=== PATIENT | female | born 1980 | race American Indian/Alaskan Native ===

== ENCOUNTER 2017-11-14 14:58 | Emergency (ER) | payer MEDICAID, OTHER ==
[2017-11-14 15:08] VITALS: BP 109/88
--- NOTE | 2017-11-14 16:12 | EDM.PDOC ---
ED HPI GENERAL MEDICAL PROBLEM - General Chief Complaint: Lower Extremity Injury/Pain Stated Complaint: BROKEN LEFT FOOT, RT SPRAINED ANKLE [phone] Time Seen by Provider: 11/14/17 15:10 - History of Present Illness INITIAL COMMENTS - FREE TEXT/NARRATIVE: Before seeing the patient, a call was placed to the [facility] regarding the patient's visit from yesterday. The patient was seen by Dr. Le yesterday, had x-rays, was placed in a brace for her right ankle sprain, placed in a walking boot for her left foot fractures, given a set of crutches and advised to take Tylenol as well as ibuprofen for symptom relief. The patient was under the understanding that she could get an appointment with another provider for additional pain medication. The patient was advised that she should call Dr. Le's office for further pain management if the medications he prescribed were not working. The patient reported that she did not want to be seen here if that is the case. Bilateral Feet Pain Score (Numeric/FACES): 8 - Related Data Allergies Allergy/AdvReac Type Severity Reaction Status Date / Time lactose Allergy Cannot Verified 11/14/17 15:08 Remember Home Meds: Home Meds Ranitidine [Zantac] 150 mg PO DAILY 05/27/15 [History] Celecoxib [CeleBREX] 100 mg PO DAILY 11/14/17 [History] Sertraline HCl 25 mg PO DAILY 11/14/17 [History] Past Medical History HEENT History: Reports: Impaired Vision Gastrointestinal History: Reports: GERD Genitourinary History: Reports: None MANAGER PUBLIC History: Reports: Other MANAGER PUBLIC History: 9th Musculoskeletal History: Reports: Fracture Psychiatric History: Reports: Anxiety, Depression Endocrine/Metabolic History: Reports: None - Infectious Disease History Infectious Disease History: Reports: Other (See Below) 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 - Past Surgical History Head Surgeries/Procedures: Reports: None Female Surgical History: Reports: Tubal Ligation Endocrine Surgical History: Reports: None Musculoskeletal Surgical History: Reports: None Social & Family History - Family History Family Medical History: Noncontributory HEENT: Reports: None - Tobacco Use Smoking Status *Q: Current Every Day Smoker Years of Tobacco use: 1 Packs/Tins Daily: 0.3 Second Hand Smoke Exposure: Yes - Caffeine Use Caffeine Use: Reports: Coffee, Soda - Recreational Drug Use Recreational Drug Use: No - Sexual History Sexual History: Reports: Sexually Active - Living Situation & Occupation Living situation: Reports: with Family, Review of Systems - Review of Systems Review Of Systems: Unable To Obtain ED EXAM, GENERAL - Physical Exam Exam: Not Obtained Course - Vital Signs Last Recorded V/S: Last Vital Signs Temp 35.9 C 11/14/17 15:03 Pulse 71 11/14/17 15:03 Resp 18 11/14/17 15:03 BP 109/88 11/14/17 15:03 Pulse Ox 99 11/14/17 15:03 Departure - Departure Time of Disposition: 16:06 Disposition: Left Without Being Seen 07 Condition: Undetermined Clinical Impression: Patient left without being seen - Discharge Information Referrals: PCP,None [Ordering Only Provider] - Forms: ED Department Discharge
== END 2017-11-14 16:06 | disposition left against medical advice (07) ==
LOC: DL.ED 14:58
DX: Z53.21 Procedure and treatment not carried out due to patient leaving prior to being seen by health care provider (principal)

== ENCOUNTER 2019-03-07 16:16 | Emergency (ER) | payer MEDICAID ==
[2019-03-07 16:48] VITALS: BP 127/73; PULSE 90
[2019-03-07] MEDS: Ondansetron 4 MG Tab.DIS PO ONE (17:57)
--- NOTE | 2019-03-07 18:03 | EDM.PDOC ---
Scribed by Maryanne Augustine 03/07/19 1804 for Krish Lawson PA ED HPI GENERAL MEDICAL PROBLEM - General Chief Complaint: Gastrointestinal Problem Stated Complaint: FEVER,THROWING UP, DHIRIA Time Seen by Provider: 03/07/19 17:07 Source of Information: Reports: Patient, RN, RN Notes Reviewed History Limitations: Reports: No Limitations - History of Present Illness INITIAL COMMENTS - FREE TEXT/NARRATIVE: Patient is a 39-year-old female who presents to ER with stomachache this morning and feeling cold. Her daughter is in the ER with similar symptoms. She has vomited 3 times today. She ate eggs for breakfast and mashed potatoes 2 hours ago. She took Tums 2 hours ago. Patient did not get her flu shot this year. Onset: Today Duration: Constant Location: Reports: Abdomen Quality: Reports: Ache Severity: Mild Improves with: Reports: None Worsens with: Reports: None Associated Symptoms: Reports: No Other Symptoms - Related Data Allergies Allergy/AdvReac Type Severity Reaction Status Date / Time lactose Allergy Cannot Verified 03/07/19 16:44 Remember Home Meds: Home Meds Celecoxib [CeleBREX] 200 mg PO DAILY 11/14/17 [History] Omeprazole 20 mg PO DAILY 03/07/19 [History] buPROPion HCl [Bupropion Xl] 150 mg PO 03/07/19 [History] Past Medical History HEENT History: Reports: Impaired Vision Cardiovascular History: Reports: None Respiratory History: Reports: None Gastrointestinal History: Reports: GERD Genitourinary History: Reports: None 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: Reports: Other LOSS CONTROL CONSULTANT History: 9th Musculoskeletal History: Reports: Fracture Neurological History: Reports: None Psychiatric History: Reports: Anxiety, Depression Endocrine/Metabolic History: Reports: Obesity/BMI 30+ Hematologic History: Reports: None Immunologic History: Reports: None Oncologic (Cancer) History: Reports: None Dermatologic History: Reports: None - Infectious Disease History Infectious Disease History: Reports: Other (See Below) 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 - Past Surgical History Head Surgeries/Procedures: Reports: None Female Surgical History: Reports: Tubal Ligation Endocrine Surgical History: Reports: None Musculoskeletal Surgical History: Reports: None Social & Family History - Family History Family Medical History: Noncontributory HEENT: Reports: None - Tobacco Use Smoking Status *Q: Never Smoker Second Hand Smoke Exposure: No - Caffeine Use Caffeine Use: Reports: Energy Drinks, Soda - Recreational Drug Use Recreational Drug Use: No - Sexual History Sexual History: Reports: Sexually Active - Living Situation & Occupation Living situation: Reports: with Family, ED ROS GENERAL - Review of Systems Review Of Systems: Comprehensive ROS is negative, except as noted in HPI. ED EXAM, GI/ABD - Physical Exam Exam: See Below Exam Limited By: No Limitations General Appearance: Alert, WD/WN, No Apparent Distress Eyes: Bilateral: Normal Appearance Ears: Normal External Exam, Normal Canal, Hearing Grossly Normal, Normal TMs Nose: Normal Inspection, Normal Mucosa, No Blood Throat/Mouth: Normal Inspection, Normal Lips, Normal Teeth, Normal Gums, Normal Oropharynx, Normal Voice, No Airway Compromise Head: Atraumatic, Normocephalic Neck: Normal Inspection, Supple, Non-Tender, Full Range of Motion Respiratory/Chest: No Respiratory Distress, Lungs Clear, Normal Breath Sounds, No Accessory Muscle Use, Chest Non-Tender Cardiovascular: Normal Peripheral Pulses, Regular Rate, Rhythm, No Edema, No Gallop, No JVD, No Murmur, No Rub GI/Abdominal Exam: Normal Bowel Sounds, Soft, Non-Tender, No Organomegaly, No Distention, No Abnormal Bruit, No Mass, Pelvis Stable (Female) Exam: Deferred Rectal (Female) Exam: Deferred Back Exam: Normal Inspection, Full Range of Motion, NT Extremities: Normal Inspection, Normal Range of Motion, Non-Tender, Normal Capillary Refill, No Pedal Edema Neurological: Alert, Oriented, CN II-XII Intact, Normal Cognition, Normal Gait, Normal Reflexes, No Motor/Sensory Deficits Psychiatric: Normal Affect, Normal Mood Skin Exam: Warm Lymphatic: No Adenopathy Course - Vital Signs Last Recorded V/S: Last Vital Signs Temp 36.6 C 03/07/19 16:46 Pulse 90 03/07/19 16:46 Resp 16 03/07/19 16:46 BP 127/73 03/07/19 16:46 Pulse Ox 99 03/07/19 16:46 - Orders/Labs/Meds Meds: Medications Discontinued Medications Generic Name Dose Route Start Last Admin Trade Name Freq PRN Reason Stop Dose Admin Ondansetron HCl 4 mg 03/07/19 17:53 03/07/19 17:57 Zofran Odt PO 03/07/19 17:54 4 mg ONETIME ONE Administration Departure - Departure Time of Disposition: 17:59 Disposition: Home, Self-Care 01 Condition: Fair Clinical Impression: Gastroenteritis - Discharge Information *PRESCRIPTION DRUG MONITORING PROGRAM REVIEWED*: Not Applicable *COPY OF PRESCRIPTION DRUG MONITORING REPORT IN PATIENT REX: Not Applicable Instructions: Viral Gastroenteritis, Adult, [id number] Forms: ED Department Discharge Care Plan Goals: The patient was advised of the examination and lab results during the visit. The patient was given an oral dose of Zofran while in the ED. The patient was discharged with a script for Zofran (4 mg) #20 to take 1 by mouth every 6 hours as needed for nausea. The patient was encouraged to stick to a BRAT diet ( bananas, rice, applesauce and toast) with small frequent sips of fluid. If the patient has any additional symptoms or concerns, the patient should either return to the emergency department or follow-up with her primary care facility. Sepsis Event Note - Evaluation Sepsis Screening Result: No Definite Risk - Focused Exam Vital Signs: Vital Signs Temp Pulse Resp BP Pulse Ox 03/07/19 16:46 36.6 C 90 16 127/73 99 Date Exam was Performed: 03/07/19 Time Exam was Performed: 17:58 I have read and agree with the documentation that has been completed regarding this visit. By signing this record, I attest that the documentation was completed in my physical presence and is an accurate record of the encounter.
== END 2019-03-07 18:09 | disposition home or self-care (01) ==
LOC: DL.ED 16:16
DX: K52.9 Noninfective gastroenteritis and colitis, unspecified (principal)
CPT/HCPCS: 87804; 99284; A9270

== ENCOUNTER 2019-09-04 20:50 | Emergency (ER) | payer MEDICAID ==
[2019-09-04] MEDS ORDERED: Succinylcholine 200 MG/10 ML MDV IV ONE (20:51)
[2019-09-04] MEDS ORDERED: Propofol 200 MG/20 ML SDV IV ONE (20:51)
[2019-09-04] MEDS ORDERED: Norepinephrine 4 MG/4 ML SDV ONE (21:26)
--- NOTE | 2019-09-04 21:37 | CR ---
PROCEDURE INFORMATION: Exam: XR Chest, 1 View Exam date and time: 09/04/2019 9:26 PM Age: 39 years old Clinical indication: Other: Tube placement; Additional info: Post intubation TECHNIQUE: Imaging protocol: XR of the chest Views: 1 view. COMPARISON: No relevant prior studies available. FINDINGS: Tubes, catheters and devices: Endotracheal tube in the right mainstem bronchus. Withdrawal of the catheter by 3.5 cm would is sure better positioning. Multiple leads and lines external to the patient overlie the chest. Nasogastric tube passes into the stomach and off the inferior margin of the image. Lungs: No suspicious pulmonary nodules or areas of lung consolidation. Pleural space: Costophrenic angles are sharp. No pneumothorax. Heart/Mediastinum: Unremarkable. No cardiomegaly. Bones/joints: Age appropriate. IMPRESSION: 1. Endotracheal tube in the right mainstem bronchus. Withdrawal of the catheter by 3.5 cm would is sure better positioning. 2. Nasogastric tube passes into the stomach and off the inferior margin of the image.
[2019-09-04 21:43] LABS: CHLORIDE,CL 103 mmol/L (98-107); SODIUM,NA 140 mmol/L (136-145)
[2019-09-04 21:44] LABS: ACETAMINOPHEN 0 ug/mL (10-30 (Therapeutic))
[2019-09-04] MEDS ORDERED: Norepinephrine 4 MG in Dextrose 5% in Water 246 ML IV SCH ×2 (21:45)
[2019-09-04] MEDS ORDERED: Potassium Chloride 10 MEQ in Premix Bag 1 BAG IV ONE (21:59)
--- NOTE | 2019-09-05 04:39 | EDM.PDOC ---
ED HPI GENERAL MEDICAL PROBLEM - General Chief Complaint: Drug or Alcohol Abuse Stated Complaint: AMBULANCE Time Seen by Provider: 09/04/19 21:15 Source of Information: Reports: EMS, RN History Limitations: Reports: Altered Mental Status - History of Present Illness INITIAL COMMENTS - FREE TEXT/NARRATIVE: ED via [facility] with report of drinking today, told took handful of s eroquel. EMS called by family. Altered mentation, Thrashing in ambulance yelling, 5 mg versed given enroute, Unresponsive on arrival. O2 sats in 70's Nasal cannula, NRB up to 80's. incontinent urine and stool .No signs of trauma, No obvious signs IVDU. pupils pinpoint. Anesthesia here to intubate, - Related Data Allergies Allergy/AdvReac Type Severity Reaction Status Date / Time lactose Allergy Cannot Verified 03/07/19 16:44 Remember Home Meds: Home Meds Celecoxib [CeleBREX] 200 mg PO DAILY 11/14/17 [History] Omeprazole 20 mg PO DAILY 03/07/19 [History] buPROPion HCL [Bupropion Xl] 150 mg PO 03/07/19 [History] Past Medical History HEENT History: Reports: Impaired Vision Cardiovascular History: Reports: None Respiratory History: Reports: None Gastrointestinal History: Reports: GERD Genitourinary History: Reports: None X RAY TECHNOLOGIST History: Reports: Other X RAY TECHNOLOGIST History: 9th Musculoskeletal History: Reports: Fracture Neurological History: Reports: None Psychiatric History: Reports: Anxiety, Depression Endocrine/Metabolic History: Reports: Obesity/BMI 30+ Hematologic History: Reports: None Immunologic History: Reports: None Oncologic (Cancer) History: Reports: None Dermatologic History: Reports: None - Infectious Disease History Infectious Disease History: Reports: Other (See Below) 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 - Past Surgical History Head Surgeries/Procedures: Reports: None Female Surgical History: Reports: Tubal Ligation Endocrine Surgical History: Reports: None Musculoskeletal Surgical History: Reports: None Social & Family History - Family History Family Medical History: Noncontributory HEENT: Reports: None - Caffeine Use Caffeine Use: Reports: Energy Drinks, Soda - Sexual History Sexual History: Reports: Sexually Active - Living Situation & Occupation Living situation: Reports: with Family, ED ROS GENERAL - Review of Systems Review Of Systems: Unable To Obtain Reason Not Obtained: unresponsive - Physical Exam Exam: See Below Exam Limited By: No Limitations General Appearance: Obtunded, Moderate Distress (snoring respirations), Obese Eye Exam: Bilateral Eye: PERRL (pinpoint) Ears: Normal External Exam, Normal TMs Nose: Normal Inspection Throat/Mouth: Normal Inspection Head Exam: Atraumatic, Normocephalic Neck: Normal Inspection Respiratory/Chest: Lungs Clear. No: Normal Breath Sounds Cardiovascular: Regular Rate, Rhythm, Tachycardia GI/Abdominal: Normal Bowel Sounds, Soft. No: Distended (Female) Exam: Other (incontinent urine) Neuro Exam (Abbreviated): Unresponsive Extremities: No: Joint Swelling, Pallor, Redness Skin Exam: Warm, Dry, Intact, Normal Color. No: Wound/Incision Course - Orders/Labs/Meds Orders: Active Orders 24 hr Category Date Time Status Blood Glucose Check, Bedside [RC] ONETIME Care 09/04/19 21:14 Active EKG Documentation Completion [RC] STAT Care 09/04/19 21:14 Active Labs: Laboratory Tests 09/04/19 09/04/19 09/04/19 Range/Units 21:02 21:02 21:02 WBC 10.0 (5.0-10.0) 10^3/uL RBC 4.46 (4.2-5.4) 10^6/uL Hgb 12.8 D (12.0-16.0) g/dL Hct 38.6 (37.0-47.0) % MCV 86.5 D (80-100) fL MCH 28.7 (27.0-34.0) pg MCHC 33.2 (33.0-35.0) g/dL Plt Count 304 (150-450) 10^3/uL Neut % (Auto) 54.1 (42.2-75.2) % Lymph % (Auto) 35.9 (20.5-50.1) % [place] % (Auto) 8.1 H (2-8) % Eos % (Auto) 1.7 (1.0-3.0) % Baso % (Auto) 0.2 (0.0-1.0) % PT 10.2 (9.0-12.0) SEC INR 1.1 (0.9-1.2) Sodium (136-145) mmol/L Potassium (3.5-5.1) mmol/L Chloride (98-107) mmol/L Carbon Dioxide (21-32) mmol/L Anion Gap (7-13) mEq/L BUN (7-18) mg/dL Creatinine (0.55-1.02) mg/dL Est Cr Clr Drug Dosing Estimated GFR (MDRD) BUN/Creatinine Ratio (No establ ref range) Glucose (74-99) mg/dL Calcium (8.5-10.1) mg/dL Magnesium (1.8-2.4) mg/dL Total Bilirubin (0.2-1.0) mg/dL AST (15-37) U/L ALT (14-59) U/L Alkaline Phosphatase (46-116) U/L Troponin I (0.000-0.056) ng/mL Total Protein (6.4-8.2) g/dL Albumin (3.4-5.0) g/dL Globulin Albumin/Globulin Ratio Amylase (25-115) U/L Salicylates (2.8-20(Therapeutic)) mg/dL Urine Opiates Screen (NEGATIVE) Ur Oxycodone Screen (NEGATIVE) Urine Methadone Screen (NEGATIVE) Acetaminophen 0 L (10-30 (Therapeutic)) ug/mL Ur Barbiturates Screen (NEGATIVE) U Tricyclic Antidepress (NEGATIVE) Ur Phencyclidine Scrn (NEGATIVE) Ur Amphetamine Screen (NEGATIVE) U Methamphetamines Scrn (NEGATIVE) Urine MDMA Screen (NEGATIVE) U Benzodiazepines Scrn (NEGATIVE) Urine Cocaine Screen (NEGATIVE) U Marijuana (THC) Screen (NEGATIVE) Ethyl Alcohol 254 (0) mg/dL Ketones 09/04/19 09/04/19 09/04/19 Range/Units 21:02 21:02 21:06 WBC (5.0-10.0) 10^3/uL RBC (4.2-5.4) 10^6/uL Hgb (12.0-16.0) g/dL Hct (37.0-47.0) % MCV (80-100) fL MCH (27.0-34.0) pg MCHC (33.0-35.0) g/dL Plt Count (150-450) 10^3/uL Neut % (Auto) (42.2-75.2) % Lymph % (Auto) (20.5-50.1) % [place] % (Auto) (2-8) % Eos % (Auto) (1.0-3.0) % Baso % (Auto) (0.0-1.0) % PT (9.0-12.0) SEC INR (0.9-1.2) Sodium 140 (136-145) mmol/L Potassium 3.0 L (3.5-5.1) mmol/L Chloride 103 (98-107) mmol/L Carbon Dioxide 18 L (21-32) mmol/L Anion Gap 22.0 H (7-13) mEq/L BUN 10 (7-18) mg/dL Creatinine 0.86 (0.55-1.02) mg/dL Est Cr Clr Drug Dosing TNP Estimated GFR (MDRD) > 60 BUN/Creatinine Ratio 11.6 (No establ ref range) Glucose 94 (74-99) mg/dL Calcium 8.4 L (8.5-10.1) mg/dL Magnesium 2.2 (1.8-2.4) mg/dL Total Bilirubin 0.5 (0.2-1.0) mg/dL AST 46 H (15-37) U/L ALT 130 H (14-59) U/L Alkaline Phosphatase 81 (46-116) U/L Troponin I < 0.017 (0.000-0.056) ng/mL Total Protein 8.1 (6.4-8.2) g/dL Albumin 3.8 (3.4-5.0) g/dL Globulin 4.3 Albumin/Globulin Ratio 0.9 Amylase 24 L (25-115) U/L Salicylates < 2.8 L (2.8-20(Therapeutic)) mg/dL Urine Opiates Screen Negative (NEGATIVE) Ur Oxycodone Screen Negative (NEGATIVE) Urine Methadone Screen Negative (NEGATIVE) Acetaminophen (10-30 (Therapeutic)) ug/mL Ur Barbiturates Screen Negative (NEGATIVE) U Tricyclic Antidepress Negative (NEGATIVE) Ur Phencyclidine Scrn Negative (NEGATIVE) Ur Amphetamine Screen Positive H (NEGATIVE) U Methamphetamines Scrn Positive H (NEGATIVE) Urine MDMA Screen Negative (NEGATIVE) U Benzodiazepines Scrn Negative (NEGATIVE) Urine Cocaine Screen Negative (NEGATIVE) U Marijuana (THC) Screen Negative (NEGATIVE) Ethyl Alcohol (0) mg/dL Ketones Negative Meds: Medications Discontinued Medications Generic Name Dose Route Start Last Admin Trade Name Helen PRN Reason Stop Dose Admin Norepinephrine Bitartrate 4 mg 250 mls @ 7.5 mls/hr 09/04/19 21:45 / Dextrose/Water IV TITRATE MARK Protocol 2 MCG/MIN Potassium Chloride 10 meq/ 100 mls @ 100 mls/hr 09/04/19 21:59 Premix IV 09/04/19 22:58 ONETIME ONE Norepinephrine Bitartrate Confirm 09/04/19 21:26 Levophed Administered 09/04/19 21:27 Dose 4 mg .ROUTE .STK-MED ONE - Re-Assessments/Exams Free Text/Narrative Re-Assessment/Exam: 09/05/19 04:31 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 BP dropping IVF bolus. TC [facility] [place] accepting tx via [facility] fixed wing. Levophed initiated. Saturation improved with ET placement. HR sinus. rate 100's. Lungs remain clear good air exchange. NG to suction small return. vented per [facility]. BP imporving. No seizure activity. Poison Control contacted. Seroquel peak 4-6 hours. Monitor QT. Departure - Departure Time of Disposition: 22:15 Disposition: DC/Tfer to Acute Hospital 02 Condition: Undetermined Clinical Impression: Alcohol abuse, Methamphetamine abuse, Hypoxia, Hypokalemia Overdose Qualifiers: Encounter type: initial encounter Injury intent: undetermined intent Qualified Code(s): T50.904A - Poisoning by unspecified drugs, medicaments and biological substances, undetermined, initial encounter - Discharge Information *PRESCRIPTION DRUG MONITORING PROGRAM REVIEWED*: No *COPY OF PRESCRIPTION DRUG MONITORING REPORT IN PATIENT REX: No Referrals: PCP,Unobtain [Primary Care Provider] - Forms: ED Department Discharge - My Orders Last 24 Hours: My Active Orders 09/04/19 21:14 Blood Glucose Check, Bedside [RC] ONETIME EKG Documentation Completion [RC] STAT - Assessment/Plan Last 24 Hours: My Active Orders 09/04/19 21:14 Blood Glucose Check, Bedside [RC] ONETIME EKG Documentation Completion [RC] STAT
== END 2019-09-04 22:23 ==
LOC: DL.ED 20:50
DX: T43.591A Poisoning by other antipsychotics and neuroleptics, accidental (unintentional), initial encounter (principal); F10.10 Alcohol abuse, uncomplicated; F15.10 Other stimulant abuse, uncomplicated; R09.02 Hypoxemia; E87.6 Hypokalemia; K21.9 Gastro-esophageal reflux disease without esophagitis; E66.9 Obesity, unspecified; F41.9 Anxiety disorder, unspecified; F32.9 Major depressive disorder, single episode, unspecified; Y90.8 Blood alcohol level of 240 mg/100 ml or more; Z91.011 Allergy to milk products; Z79.899 Other long term (current) drug therapy
CPT/HCPCS: 31500; 36415; 71045; 80053; 80305; 80307; 82009; 82150; 82272; 83735; 84484; 85025; 85610; 99285; J0330; J2704

== ENCOUNTER 2019-11-22 01:00 | Emergency (ER) | payer OTHER, MEDICAID ==
[2019-11-22 01:26] VITALS: BP 120/60; PULSE 89
[2019-11-22] MEDS ORDERED: Azithromycin 250 MG Tab PO ONE (01:45)
[2019-11-22] MEDS ORDERED: cefTRIAXone 250 MG, Lidocaine 1% 0.9 ML IM ONE ×2 (01:45)
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
[2019-11-25 20:42] LABS: C.TRACHOMATIS BY TMA Negative (Negative); N.GONORRHOEAE BY TMA Negative (Negative)
== END 2019-11-22 03:30 | disposition home or self-care (01) ==
LOC: DL.ED 01:00
DX: T76.21XA Adult sexual abuse, suspected, initial encounter (principal); N76.0 Acute vaginitis; B96.89 Other specified bacterial agents as the cause of diseases classified elsewhere; K21.9 Gastro-esophageal reflux disease without esophagitis; F17.210 Nicotine dependence, cigarettes, uncomplicated; E66.9 Obesity, unspecified; Z68.36 Body mass index [BMI] 36.0-36.9, adult; Z91.011 Allergy to milk products; Z79.899 Other long term (current) drug therapy
CPT/HCPCS: 80305-QW; 81001; 81025; 87210; 87491; 87591; 96372; 99284; A9270-GY; J0696; J2001

== ENCOUNTER 2020-05-12 21:55 | Emergency (ER) | payer MEDICAID ==
[2020-05-12 22:00] VITALS: BP 152/110; PULSE 127
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
== END 2020-05-12 22:30 | disposition left against medical advice (07) ==
LOC: DL.ED 21:55
DX: T76.21XA Adult sexual abuse, suspected, initial encounter (principal); K21.9 Gastro-esophageal reflux disease without esophagitis; E66.9 Obesity, unspecified; Z68.37 Body mass index [BMI] 37.0-37.9, adult; Z79.899 Other long term (current) drug therapy; Z91.048 Other nonmedicinal substance allergy status
CPT/HCPCS: 99284

== ENCOUNTER 2020-05-19 22:49 | Emergency (ER) | payer MEDICAID ==
[2020-05-19] MEDS ORDERED: LORazepam 2 MG/ML SDV ONE ×2 (22:53→23:11)
[2020-05-19] MEDS ORDERED: Haloperidol Lactate 5 MG/ML SDV IM ONE ×2 (23:06→23:08)
[2020-05-19] MEDS ORDERED: diphenhydrAMINE 50 MG/ML SDV IVPUSH ONE (23:08)
[2020-05-19] MEDS ORDERED: LORazepam 2 MG/ML SDV IVPUSH ONE (23:10)
[2020-05-19] MEDS ORDERED: diphenhydrAMINE 50 MG/ML SDV ONE (23:10)
[2020-05-19 23:30] VITALS: BP 138/67; PULSE 101
[2020-05-19] MEDS ORDERED: LORazepam 2 MG/ML SDV IM ONE (23:47)
[2020-05-19] MEDS ORDERED: LORazepam 2 MG/ML SDV IVPUSH PRN (23:55)
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
--- NOTE | 2020-05-20 00:05 | CR ---
PROCEDURE INFORMATION: Exam: XR Chest Exam date and time: 05/19/2020 11:53 PM Age: 40 years old Clinical indication: Other: Et placement; Additional info: Post intubation TECHNIQUE: Imaging protocol: XR of the chest Views: 1 view. COMPARISON: CR Chest 1V Frontal 09/04/2019 9:26 PM FINDINGS: Tubes, catheters and devices: The tip of the endotracheal tube is now positioned 1.5 cm above the bryson. Nasogastric tube is coiled in the gastric fundus. Lungs: Unremarkable. No consolidation. Pleural spaces: Low lung volumes bilaterally. Left base patchy consolidation. Heart/Mediastinum: Unremarkable. No cardiomegaly. Bones/joints: Unremarkable. IMPRESSION: Support tubes and lines well positioned. Left base patchy consolidation.
[2020-05-20 00:28] LABS: ANION GAP 20.8 mEq/L (7-13); CHLORIDE,CL 105 mmol/L (98-107); SODIUM,NA 143 mmol/L (136-145)
== END 2020-05-20 00:50 ==
LOC: DL.ED 22:49
DX: R45.851 Suicidal ideations (principal); F10.129 Alcohol abuse with intoxication, unspecified; R82.5 Elevated urine levels of drugs, medicaments and biological substances; F15.10 Other stimulant abuse, uncomplicated; K21.9 Gastro-esophageal reflux disease without esophagitis; E66.9 Obesity, unspecified; Z20.822 Contact with and (suspected) exposure to COVID-19; Z91.048 Other nonmedicinal substance allergy status; Z79.899 Other long term (current) drug therapy
CPT/HCPCS: 31500; 36415; 43752; 51702; 71045; 80053; 80305; 80307; 81003; 81025; 85025; 87635; 96372; 96374; 96375; 99284; 99285; J1200; J2060; U0002

== ENCOUNTER 2021-03-18 16:52 | Observation (INO) | payer MEDICAID ==
[2021-03-18] MEDS ORDERED: MVI, Adult with Vitamin K 10 ML, Thiamine 100 MG, Folic Acid 1 MG in Lactated Ringers 1... IV ONE ×4 (17:06)
[2021-03-18] MEDS ORDERED: Sodium Chloride 0.9% 10 ML Syringe FLUSH PRN (17:06)
[2021-03-18 18:31] LABS: ANION GAP 17.5 mEq/L (7-13); CHLORIDE,CL 110 mmol/L (98-107); SODIUM,NA 148 mmol/L (136-145)
[2021-03-18 18:32] LABS: ACETAMINOPHEN 0 ug/mL (10-30 (Therapeutic))
--- NOTE | 2021-03-18 19:14 | EDM.PDOCBH ---
Scribed by Maryanne Augustine 03/18/211912 for Shaji Wade MD ED HPI GENERAL MEDICAL PROBLEM - General Chief Complaint: Drug or Alcohol Abuse Stated Complaint: AMBULANCE Time Seen by Provider: 03/18/21 16:53 Source of Information: Reports: Patient, EMS, EMS Notes Reviewed, RN, RN Notes Reviewed History Limitations: Reports: No Limitations - History of Present Illness INITIAL COMMENTS - FREE TEXT/NARRATIVE: Patient arrives to ED by [facility]. Patient was found sitting in snow bank. No one was able to help her up. Patient admits to drinking a lot of alcohol throughout the day today. Patient very uncooperative upon arrival. Pt states she is suicidal and plans to overdose or throw herself in front of a moving truck. Pt refuses to answer any other questions. Onset: Today Location: Reports: Generalized Severity: Severe Improves with: Reports: None Worsens with: Reports: None Associated Symptoms: Reports: No Other Symptoms - Related Data Allergies Allergy/AdvReac Type Severity Reaction Status Date / Time lactose Allergy Cannot Verified 05/12/20 21:55 Remember Home Meds: Home Meds Celecoxib [CeleBREX] 200 mg PO DAILY 11/14/17 [History] Omeprazole 20 mg PO DAILY 03/07/19 [History] buPROPion HCL [Bupropion Xl] 150 mg PO 03/07/19 [History] Past Medical History HEENT History: Reports: Impaired Vision Cardiovascular History: Reports: None Respiratory History: Reports: None Gastrointestinal History: Reports: GERD Genitourinary History: Reports: None 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 History: 9th Musculoskeletal History: Reports: Fracture Neurological History: Reports: None Psychiatric History: Reports: Addiction, Anxiety, Depression Endocrine/Metabolic History: Reports: Obesity/BMI 30+ Hematologic History: Reports: None Immunologic History: Reports: None Oncologic (Cancer) History: Reports: None Dermatologic History: Reports: None - Infectious Disease History Infectious Disease History: Reports: Other (See Below) 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 - Past Surgical History Head Surgeries/Procedures: Reports: None HEENT Surgical History: Reports: None GI Surgical History: Reports: None Female Surgical History: Reports: Tubal Ligation Endocrine Surgical History: Reports: None Musculoskeletal Surgical History: Reports: None Social & Family History - Family History Family Medical History: No Pertinent Family History HEENT: Reports: None - Caffeine Use Caffeine Use: Reports: None - Living Situation & Occupation Living situation: Reports: with Family, ED ROS GENERAL - Review of Systems Review Of Systems: Comprehensive ROS is negative, except as noted in HPI. ED EXAM, BEHAVIORAL HEALTH - Physical Exam Exam: See Below Exam Limited By: Intoxication General Appearance: Alert, Obese, Other (Uncooperative) Eye Exam: Bilateral Eye: EOMI, Normal Inspection, PERRL Ears: Normal External Exam, Hearing Grossly Normal Nose: Normal Inspection, Normal Mucosa, No Blood Throat/Mouth: Normal Lips, Normal Voice, No Airway Compromise Head: Atraumatic, Normocephalic Neck: Normal Inspection, Supple, Non-Tender, Full Range of Motion Respiratory/Chest: No Respiratory Distress, Lungs Clear, Normal Breath Sounds, No Accessory Muscle Use, Chest Non-Tender Cardiovascular: Regular Rate, Rhythm, No Edema, Tachycardia GI/Abdominal: Normal Bowel Sounds, Soft, Non-Tender Back Exam: Normal Inspection Extremities: Normal Inspection, Normal Range of Motion, Non-Tender, Normal Capillary Refill, No Pedal Edema Neurological: Alert, No Motor/Sensory Deficits, Other (Intoxicated, uncooperative) Psychiatric: Depressed Mood, Tearful, Agitated, Suicidal Plan, Suicidal Thoughts, Auditory Hallucinations, Visual Hallucinations. No: Homicidal Thoughts, Zoroastrianism Delusions, Tangential Thoughts, Paranoid Thoughts Skin Exam: Warm, Dry, Intact, Normal color, No rash COURSE, BEHAVIORAL HEALTH COMP - Course Orders, Labs, Meds: Active Orders 24 hr Category Date Time Status Peripheral IV Care [RC] . DIRECTED Care 03/18/21 17:06 Active DRUG SCREEN URINE BIORAD [URCHEM] Stat Lab 03/18/21 17:05 Ordered UA RFX CARLOS AND CULT IF INDIC [URIN] Stat Lab 03/18/21 17:06 Ordered Sodium Chloride 0.9% [Saline Flush] Med 03/18/21 17:06 Active 10 ml FLUSH ASDIRECTED PRN Peripheral IV Insertion Adult [OM.PC] Routine Oth 03/18/21 17:06 Ordered Medication Orders Sodium Chloride (Sodium Chloride 0.9% 10 Ml Syringe) 10 ml FLUSH ASDIRECTED PRN PRN Reason: Keep Vein Open Laboratory Tests 03/18/21 03/18/21 03/18/21 Range/Units 17:27 17:27 17:27 WBC 8.7 (5.0-10.0) 10^3/uL RBC 5.15 (4.2-5.4) 10^6/uL Hgb 14.2 D (12.0-16.0) g/dL Hct 42.9 (37.0-47.0) % MCV 83.3 (80-100) fL MCH 27.6 (27.0-34.0) pg MCHC 33.1 (33.0-35.0) g/dL Plt Count 402 D (150-450) 10^3/uL Neut % (Auto) 58.1 (42.2-75.2) % Lymph % (Auto) 34.1 (20.5-50.1) % Desha % (Auto) 6.1 (2-8) % Eos % (Auto) 1.4 (1.0-3.0) % Baso % (Auto) 0.3 (0.0-1.0) % Sodium 148 H (136-145) mmol/L Potassium 4.5 (3.5-5.1) mmol/L Chloride 110 H (98-107) mmol/L Carbon Dioxide 25 (21-32) mmol/L Anion Gap 17.5 H (7-13) mEq/L BUN 6 L (7-18) mg/dL Creatinine 0.48 L (0.55-1.02) mg/dL Est Cr Clr Drug Dosing TNP Estimated GFR (MDRD) > 60 BUN/Creatinine Ratio 12.5 (No establ ref range) Glucose 97 (70-99) mg/dL Calcium 8.2 L (8.5-10.1) mg/dL Total Bilirubin 0.2 (0.2-1.0) mg/dL AST 28 (15-37) U/L ALT 39 (14-59) U/L Alkaline Phosphatase 103 (46-116) U/L Total Protein 8.4 H (6.4-8.2) g/dL Albumin 3.6 (3.4-5.0) g/dL Globulin 4.8 Albumin/Globulin Ratio 0.8 Salicylates < 2.8 L (2.8-20(Therapeutic)) mg/dL Acetaminophen 0 L (10-30 (Therapeutic)) ug/mL Ethyl Alcohol 384 (0) mg/dL Medications Generic Name Dose Route Start Last Admin Trade Name Freq PRN Reason Stop Dose Admin Sodium Chloride 10 ml 03/18/21 17:06 Sodium Chloride 0.9% 10 Ml Syringe FLUSH ASDIRECTED PRN Keep Vein Open Discontinued Medications Generic Name Dose Route Start Last Admin Trade Name Helen PRN Reason Stop Dose Admin Multivitamins/Minerals 10 ml/ 1,011.2 mls @ 999 mls/hr 03/18/21 17:06 Thiamine HCl 100 mg/ Folic IV 03/18/21 18:06 Acid 1 mg/ Lactated Ringer's .BOLUS ONE Medical Clearance: 03/18/21 19:11 Pt is too intoxicated to be medically cleared, and will have to be admitted with suicide precautions until sober, then evaluated by mental health community arts worker tomorrow. Discharge vs Psych Eval/Treatment:: 03/18/21 19:12 Pt admitted to medical floor with suicide precautions to Dr. Velázquez. Departure - Departure Time of Disposition: 19:13 (admitted to Dr. Velázquez) Disposition: Refer to Observation Condition: Undetermined Clinical Impression: Suicidal thoughts, Alcohol abuse Alcohol intoxication Qualifiers: Complication of substance-induced condition: with unspecified complication Qualified Code(s): F10.929 - Alcohol use, unspecified with intoxication, unspecified - Discharge Information *PRESCRIPTION DRUG MONITORING PROGRAM REVIEWED*: No *COPY OF PRESCRIPTION DRUG MONITORING REPORT IN PATIENT REX: No Forms: ED Department Discharge - My Orders Last 24 Hours: My Active Orders 03/18/21 17:05 DRUG SCREEN URINE BIORAD [URCHEM] Stat 03/18/21 17:06 Peripheral IV Care [RC] . DIRECTED UA RFX CARLOS AND CULT IF INDIC [URIN] Stat Sodium Chloride 0.9% [Saline Flush] 10 ml FLUSH ASDIRECTED PRN Peripheral IV Insertion Adult [OM.PC] Routine - Assessment/Plan Last 24 Hours: My Active Orders 03/18/21 17:05 DRUG SCREEN URINE BIORAD [URCHEM] Stat 03/18/21 17:06 Peripheral IV Care [RC] . DIRECTED UA RFX CARLOS AND CULT IF INDIC [URIN] Stat Sodium Chloride 0.9% [Saline Flush] 10 ml FLUSH ASDIRECTED PRN Peripheral IV Insertion Adult [OM.PC] Routine I have read and agree with the documentation that has been completed regarding this visit. By signing this record, I attest that the documentation was completed in my physical presence and is an accurate record of the encounter.
[2021-03-18] MEDS ORDERED: LORazepam 2 MG/ML SDV IVPUSH ONE (19:16)
--- NOTE | 2021-03-18 19:51 | PCM.HP ---
H&P History of Present Illness - General Date of Service: 03/18/21 Admit Problem/Dx: Admission Diagnosis/Problem Admission Diagnosis/Problem Suicidal ideation/Alcohol Intoxication Source of Information: Patient, Old Records History Limitations: Reports: No Limitations - History of Present Illness Initial Comments - Free Text/Narative: Ms. Pratt is a 41-year-old obese female with past history of anxiety disorder depression obesity GERD history of drug and alcohol abuse history of HSV 1 and 2, Patient arrived to ED by [facility]. Patient was found sitting in snow bank. No one was able to help her up. Patient admits of drinking a lot of alcohol throughout the day today. Patient very uncooperative upon arrival. Pt states she is suicidal and plans to overdose or throw herself in front of a moving truck. Pt refuses to answer any other questions. and she wants to go home and combative. she has no peripheral IV line, she ripped it off as per ER transfer. Patient is admitted for observation and mental health court worker will come tomorrow ( 03/19/21) to evaluate her and possibly will be taken to [facility]/psych treatment and evaluation. Her blood alcohol level is 384, and her sodium is 148 but I cannot give her any any infusion of fluid b ecause she does not have any peripheral line at this time. Onset of Symptoms: Reports: Today - Related Data Allergies/Adverse Reactions: Allergies Allergy/AdvReac Type Severity Reaction Status Date / Time lactose Allergy Cannot Verified 05/12/20 21:55 Remember Home Medications: Home Meds Celecoxib [CeleBREX] 200 mg PO DAILY 11/14/17 [History] Omeprazole 20 mg PO DAILY 03/07/19 [History] buPROPion HCL [Bupropion Xl] 150 mg PO 03/07/19 [History] Past Medical History HEENT History: Reports: Impaired Vision Cardiovascular History: Reports: None Respiratory History: Reports: None Gastrointestinal History: Reports: GERD Genitourinary History: Reports: None 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 OB/BYN History: 9th Musculoskeletal History: Reports: Fracture Neurological History: Reports: None Psychiatric History: Reports: Addiction, Anxiety, Depression Endocrine/Metabolic History: Reports: Obesity/BMI 30+ Hematologic History: Reports: None Immunologic History: Reports: None Oncologic (Cancer) History: Reports: None Dermatologic History: Reports: None - Infectious Disease History Infectious Disease History: Reports: Other (See Below) 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 - Past Surgical History Head Surgeries/Procedures: Reports: None HEENT Surgical History: Reports: None GI Surgical History: Reports: None Female Surgical History: Reports: Tubal Ligation Endocrine Surgical History: Reports: None Musculoskeletal Surgical History: Reports: None Social & Family History - Family History Family Medical History: No Pertinent Family History HEENT: Reports: None - Tobacco Use Tobacco Use Status *Q: Unknown Ever Used Tobacco Second Hand Smoke Exposure: No - Caffeine Use Caffeine Use: Reports: None - Living Situation & Occupation Living situation: Reports: with Family, H&P Review of Systems - Review of Systems: Review Of Systems: See Below General: Denies: Fever, Chills, Weakness HEENT: Denies: Ear Pain, Sinus Congestion, Visual Changes Pulmonary: Denies: Shortness of Breath, Wheezing, Cough, Sputum Cardiovascular: Denies: Chest Pain, Edema, Lightheadedness Gastrointestinal: Denies: Abdominal Pain, Diarrhea, Vomiting Genitourinary: Denies: Dysuria, Frequency, Burning Musculoskeletal: Denies: Neck Pain, Leg Pain, Joint Pain Skin: Denies: Jaundice, Bruising, Pruritis, Rash Psychiatric: Reports: Anxiety. Denies: Confusion Neurological: Denies: Dizziness, Numbness, Tremors, Difficulty Walking, Weakness Exam - Exam Exam: See Below - Exam Quality Assessment: DVT Prophylaxis. No: Supplemental Oxygen, Central Line/PICC, Urinary Catheter General: Alert, Oriented HEENT: Conjunctiva Clear, Mucosa Moist & Ava, Pupils Equal Neck: Supple. No: JVD, Thyromegaly Lungs: Clear to Auscultation, Normal Respiratory Effort Cardiovascular: Regular Rate, Regular Rhythm, Normal S1, Normal S2 GI/Abdominal Exam: Normal Bowel Sounds, Non-Tender, No Distention (Female) Exam: Deferred Rectal (Female) Exam: Deferred Back Exam: Normal Inspection Extremities: Normal Inspection, No Pedal Edema Skin: Warm, Intact Neurological: Cranial Nerves Intact Neuro Extensive - Mental Status: Alert, Oriented x3, Normal Mood/Affect, Normal Cognition Neuro Extensive - Motor, Sensory, Reflexes: CN II-XII Intact Psychiatric: Alert, Normal Affect, Normal Mood, Suicidal Ideation - Patient Data Lab Results Last 24 hrs: Laboratory Results - last 24 hr 03/18/21 03/18/21 03/18/21 Range/Units 17:27 17:27 17:27 WBC 8.7 (5.0-10.0) 10^3/uL RBC 5.15 (4.2-5.4) 10^6/uL Hgb 14.2 D (12.0-16.0) g/dL Hct 42.9 (37.0-47.0) % MCV 83.3 (80-100) fL MCH 27.6 (27.0-34.0) pg MCHC 33.1 (33.0-35.0) g/dL Plt Count 402 D (150-450) 10^3/uL Neut % (Auto) 58.1 (42.2-75.2) % Lymph % (Auto) 34.1 (20.5-50.1) % [place] % (Auto) 6.1 (2-8) % Eos % (Auto) 1.4 (1.0-3.0) % Baso % (Auto) 0.3 (0.0-1.0) % Sodium 148 H (136-145) mmol/L Potassium 4.5 (3.5-5.1) mmol/L Chloride 110 H (98-107) mmol/L Carbon Dioxide 25 (21-32) mmol/L Anion Gap 17.5 H (7-13) mEq/L BUN 6 L (7-18) mg/dL Creatinine 0.48 L (0.55-1.02) mg/dL Est Cr Clr Drug Dosing TNP Estimated GFR (MDRD) > 60 BUN/Creatinine Ratio 12.5 (No establ ref range) Glucose 97 (70-99) mg/dL Calcium 8.2 L (8.5-10.1) mg/dL Total Bilirubin 0.2 (0.2-1.0) mg/dL AST 28 (15-37) U/L ALT 39 (14-59) U/L Alkaline Phosphatase 103 (46-116) U/L Total Protein 8.4 H (6.4-8.2) g/dL Albumin 3.6 (3.4-5.0) g/dL Globulin 4.8 Albumin/Globulin Ratio 0.8 Salicylates < 2.8 L (2.8-20(Therapeutic)) mg/dL Acetaminophen 0 L (10-30 (Therapeutic)) ug/mL Ethyl Alcohol 384 (0) mg/dL Result Diagrams: 03/18/21 17:27 03/18/21 17:27 - Problem List (1) Hypernatremia SNOMED Code(s): 982540495 ICD Code: E87.0 - HYPEROSMOLALITY AND HYPERNATREMIA Status: Acute Current Visit: Yes (2) Alcohol abuse SNOMED Code(s): 48431219 ICD Code: F10.10 - ALCOHOL ABUSE, UNCOMPLICATED Status: Acute Current Visit: No (3) Alcohol intoxication SNOMED Code(s): 90982427 ICD Code: F10.929 - ALCOHOL USE, UNSPECIFIED WITH INTOXICATION, UNSPECIFIED Status: Acute Current Visit: No Qualifiers: Complication of substance-induced condition: with unspecified complication Qualified Code(s): F10.929 - Alcohol use, unspecified with intoxication, unspecified (4) Combative behavior SNOMED Code(s): 389967763 ICD Code: R46.89 - OTHER SYMPTOMS AND SIGNS INVOLVING APPEARANCE AND BEHAVIOR Status: Acute Current Visit: No Problem List Initiated/Reviewed/Updated: Yes Orders Last 24hrs: Active Orders 24 hr Category Date Time Status Admission Diagnosis [ADT] Stat ADT 03/18/21 19:34 Ordered Admission Status [Patient Status] [ADT] Routine ADT 03/18/21 19:34 Active DRUG SCREEN URINE BIORAD [URCHEM] Stat Lab 03/18/21 17:05 Ordered UA RFX CARLOS AND CULT IF INDIC [URIN] Stat Lab 03/18/21 17:06 Ordered Sodium Chloride 0.9% [Saline Flush] Med 03/18/21 17:06 Active 10 ml FLUSH ASDIRECTED PRN Peripheral IV Insertion Adult [OM.PC] Routine Oth 03/18/21 17:06 Ordered Medication Orders Sodium Chloride (Sodium Chloride 0.9% 10 Ml Syringe) 10 ml FLUSH ASDIRECTED PRN PRN Reason: Keep Vein Open Assessment/Plan Comment:: This is a 41-year-old obese female admitted for alcohol abuse/alcohol overdose her alcohol level was 384 she will be admitted for alcohol withdrawal and observation overnight for evaluation by the mental health court worker for further evaluation tomorrow. Impression and plan: 1. Alcohol overdose/alcohol abuse; patient has been drinking alcohol throughout the day and her alcohol level was 384. We will admit her for observation today and place her on CIWA protocol Since she does not have any IV line will use Ativan and possibly Haldol if needed intramuscularly. She will be evaluated by mental health court worker for further evaluation tomorrow. 2. Depression and suicidal ideation: Patient is stated ERC did take this heavy amount of alcohol and have the plan to commit suicide and also wanted to go in front of traffic to take her life, she needs to be evaluated by psychiatry and she may need inpatient psychiatric treatment. 3. GERD: We will continue her with Protonix 40 mg p.o. daily with breakfast. CODE STATUS: Discussed with patient about CODE STATUS and she is full code.
[2021-03-18] MEDS ORDERED: Docusate Sodium 100 MG Cap PO PRN (20:11)
[2021-03-18] MEDS ORDERED: Acetaminophen 325 MG Tab PO PRN (20:11)
[2021-03-18] MEDS ORDERED: LORazepam 1 MG Tab PO PRN (20:17)
[2021-03-18] MEDS ORDERED: LORazepam 2 MG/ML SDV IM PRN ×2 (20:20→20:40)
[2021-03-18] MEDS ORDERED: Haloperidol Lactate 5 MG/ML SDV IM PRN (20:25)
[2021-03-18] MEDS: LORazepam 1 MG Tab PO PRN (21:54)
[2021-03-19] MEDS ORDERED: Melatonin 3 MG Tab PO PRN (03:09)
[2021-03-19] MEDS: LORazepam 1 MG Tab PO PRN ×3 (03:11→05:15)
[2021-03-19] MEDS ORDERED: Ondansetron 4 MG Tab.DIS PO ONE (04:55)
[2021-03-19] MEDS ORDERED: Omeprazole 20 MG Cap.CR PO SCH (06:00)
[2021-03-19 06:30] LABS: ANION GAP 14.7 mEq/L (7-13); CHLORIDE,CL 106 mmol/L (98-107); SODIUM,NA 144 mmol/L (136-145)
[2021-03-19] MEDS ORDERED: buPROPion 150 MG Tab.ER PO SCH (09:00)
[2021-03-19 10:03] LABS: AMPHETAMINES,URINE NEGATIVE (NEGATIVE); BARBITURATES,URINE NEGATIVE (NEGATIVE); BENZODIAZEPINE,URINE POSITIVE (NEGATIVE); MDMA (ECSTASY), URINE NEGATIVE (NEGATIVE); METHADONE,URINE NEGATIVE (NEGATIVE); METHAMPHETAMINES,URINE NEGATIVE (NEGATIVE); OPIATES,URINE NEGATIVE (NEGATIVE); OXYCODONE,URINE NEGATIVE (NEGATIVE); PHENCYCLIDINE,URINE NEGATIVE (NEGATIVE); TCA,URINE NEGATIVE (NEGATIVE)
--- NOTE | 2021-03-19 19:13 | PCM.DCSUM1 ---
Discharge Summary - Hospital Course Free Text/Narrative:: Santa was admitted on 03/18/21 for an episode of altered mental status. She was found intoxicated (bld alcohol 384) and found sitting on a snow bank outdoors. There was concern for suicidal ideation; she reportedly mentioned thoughts of overdosing on medication or throwing herself onto a moving truck. Ativan per [facility] protocol during first night of hospitalization. The next day, ie 03/19, her mentation was normal. On discussion, she mentioned alcohol binge with friends in 24h prior to hospitalization and mentioned no alcohol use for several months prior to this episode. She did not recall suicidal ideation from the night before, was pleasant, cooperative, demonstrated logic and reasoning sufficient for decision-making capacity and did not show any concern for her or others' safety. There was no sign of alcohol withdrawal. She did not require any PRN ativan in 12h prior to discharge. Of note, she had an episode of hematuria that she attributed to start of menstrual period; previous period was approx 14d prior. Although urinalysis showed pyuria, she had no symptoms of UTI. I discussed causes of hematuria and asked her to discuss hematuria episode with primary care provider. She was seen by [facility] health service staff member while in hospital and was scheduled for a close followup outpatient. She was discharged home in a much improved state. - Discharge Data Discharge Date: 03/19/21 Discharge Disposition: Home, Self-Care 01 Condition: Good - Referral to Home Health Primary Care Physician: PCP None - Discharge Plan *PRESCRIPTION DRUG MONITORING PROGRAM REVIEWED*: Not Applicable *COPY OF PRESCRIPTION DRUG MONITORING REPORT IN PATIENT REX: Not Applicable Home Medications: Home Meds buPROPion HCL [Bupropion Xl] 150 mg PO DAILY 03/07/19 [History] Acetaminophen [Tylenol] 650 mg PO Q4H PRN tablet 03/19/21 [Rx] Cholecalciferol (Vitamin D3) [Vitamin D3] 1,000 unit PO DAILY 03/19/21 [History] Docusate Sodium [Colace] 100 mg PO DAILY PRN cap 03/19/21 [Rx] Melatonin 5 mg PO BEDTIME 03/19/21 [History] Multivitamin 1 tab PO DAILY 03/19/21 [History] Pantoprazole Sodium [Protonix] 40 mg PO DAILY PRN 03/19/21 [History] buPROPion [buPROPion XL] 150 mg PO DAILY tab.er 03/19/21 [Rx] metFORMIN [Glucophage] 500 mg PO BID 03/19/21 [History] Patient Handouts: Alcohol Intoxication, [id number] Referrals: Kip Prather APPLIANCE REPAIR TECHNICIAN [Ordering Only Provider] - - Discharge Summary/Plan Comment DC Time >30 min.: Yes (35) Total # of Minutes for Discharge Time: 35 - Patient Data Vitals - Most Recent: Last Vital Signs Temp 98.5 F 03/19/21 12:00 Pulse 68 03/19/21 12:00 Resp 16 03/19/21 12:00 BP 154/69 H 03/19/21 12:00 Pulse Ox 95 03/19/21 12:00 Weight - Most Recent: 287 lb I&O - Last 24 hours: Intake & Output 03/19/21 03/19/21 03/19/21 06:59 14:59 22:59 Intake Total 960 Output Total 250 Balance -250 960 Lab Results - Last 24 hrs: Laboratory Results - last 24 hr 03/19/21 03/19/21 03/19/21 Range/Units 05:15 09:35 09:35 Sodium 144 (136-145) mmol/L Potassium 3.7 (3.5-5.1) mmol/L Chloride 106 (98-107) mmol/L Carbon Dioxide 27 (21-32) mmol/L Anion Gap 14.7 H (7-13) mEq/L BUN 11 (7-18) mg/dL Creatinine 0.59 (0.55-1.02) mg/dL Est Cr Clr Drug Dosing 124.02 mL/min Estimated GFR (MDRD) > 60 Glucose 98 (70-99) mg/dL Calcium 7.8 L (8.5-10.1) mg/dL Urine Color Red (YELLOW) Urine Appearance Clear (CLEAR) Urine pH 7.0 (5.0-9.0) Ur Specific [place] 1.020 (1.005-1.030) Urine Protein >=300 H (NEGATIVE) Urine Glucose (UA) Negative (NEGATIVE) Urine Ketones Trace H (NEGATIVE) Urine Occult Blood Large H (NEGATIVE) Urine Nitrite Positive H (NEGATIVE) Urine Bilirubin Moderate H (NEGATIVE) Urine Urobilinogen 2.0 H (0.2-1.0) mg/dL Ur Leukocyte Esterase Large H (NEGATIVE) Urine RBC Packed H (0-5) /HPF Urine WBC 10-20 H (0-5/HPF) /HPF Ur Epithelial Cells Moderate H (NOT SEEN) /HPF Urine Bacteria Few (0-FEW/HPF) /HPF Urine Mucus Not seen (NOT SEEN) /LPF Urine Opiates Screen Negative (NEGATIVE) Ur Oxycodone Screen Negative (NEGATIVE) Urine Methadone Screen Negative (NEGATIVE) Ur Barbiturates Screen Negative (NEGATIVE) U Tricyclic Antidepress Negative (NEGATIVE) Ur Phencyclidine Scrn Negative (NEGATIVE) Ur Amphetamine Screen Negative (NEGATIVE) U Methamphetamines Scrn Negative (NEGATIVE) Urine MDMA Screen Negative (NEGATIVE) U Benzodiazepines Scrn Positive H (NEGATIVE) Urine Cocaine Screen Negative (NEGATIVE) U Marijuana (THC) Screen Positive H (NEGATIVE) Ethyl Alcohol < 3 (0) mg/dL Med Orders - Current: Current Medications Acetaminophen (Acetaminophen 325 Mg Tab) 650 mg PO Q4H PRN PRN Reason: Pain (mild 1-3 )/fever Last Admin: 03/19/21 13:22 Dose: 650 mg Documented by: Bupropion HCl (Bupropion 150 Mg Tab.Er) 150 mg PO DAILY [facility] Last Admin: 03/19/21 13:33 Dose: Not Given Documented by: Docusate Sodium (Docusate Sodium 100 Mg Cap) 100 mg PO DAILY PRN PRN Reason: Constipation Haloperidol Lactate (Haloperidol Lactate 5 Mg/Ml Sdv) 4 mg IM Q8H PRN PRN Reason: Agitation Lorazepam (Lorazepam 1 Mg Tab) 1 - 2 mg PO ASDIRECTED PRN; Protocol PRN Reason: Agitation Last Admin: 03/19/21 05:15 Dose: 2 mg Documented by: Lorazepam (Lorazepam 2 Mg/Ml Sdv) 1 - 2 mg IM Q4H PRN; Protocol PRN Reason: Agitation Melatonin (Melatonin 3 Mg Tab) 6 mg PO BEDTIME PRN PRN Reason: Insomnia Last Admin: 03/19/21 03:22 Dose: 6 mg Documented by: Omeprazole (Omeprazole 20 Mg Cap.Cr) 20 mg PO ACBRK [facility] Last Admin: 03/19/21 05:14 Dose: 20 mg Documented by: Sodium Chloride (Sodium Chloride 0.9% 10 Ml Syringe) 10 ml FLUSH ASDIRECTED PRN PRN Reason: Keep Vein Open Discontinued Medications Multivitamins/Minerals 10 ml/Thiamine HCl 100 mg/ Folic Acid 1 mg/ Lactated Ringer's 1,011.2 mls @ 999 mls/hr IV .BOLUS ONE Stop: 03/18/21 18:06 Last Admin: 03/18/21 21:53 Dose: Not Given Documented by: Lorazepam (Lorazepam 2 Mg/Ml Sdv) 2 mg IVPUSH ONETIME ONE Stop: 03/18/21 19:17 Last Admin: 03/18/21 19:23 Dose: 2 mg Documented by: Lorazepam (Lorazepam 1 Mg Tab) 1 mg PO ASDIRECTED PRN; Protocol PRN Reason: Agitation Last Admin: 03/18/21 20:28 Dose: 2 mg Documented by: Lorazepam (Lorazepam 2 Mg/Ml Sdv) 2 mg IM Q4H PRN; Protocol PRN Reason: Agitation Ondansetron HCl (Ondansetron 4 Mg Tab.Dis) 4 mg PO ONETIME ONE Stop: 03/19/21 04:56 Last Admin: 03/19/21 06:07 Dose: 4 mg Documented by:
[2021-03-19 20:32] VITALS: BP 125/75; PULSE 82
== END 2021-03-19 19:22 | disposition home or self-care (01) ==
LOC: DL.ED 16:52 → DL.MS 19:19 → INTOOBSV 19:34 → OBSVTOIN 19:34 → DL.ED 19:36
PROVIDERS: ADMIT Internal Medicine Nephrology; ATTEND Student in an Organized Health Care Education/Training Program
DX: F10.129 Alcohol abuse with intoxication, unspecified (principal); F32.A Depression, unspecified; R45.851 Suicidal ideations; K21.9 Gastro-esophageal reflux disease without esophagitis; E87.0 Hyperosmolality and hypernatremia; Z79.899 Other long term (current) drug therapy
CPT/HCPCS: 36415; 80048; 80053; 80143; 80179; 80305; 80307; 81001; 85025; 87086; 96374; 99285; A9270; G0378; J2060; 87088; 87186

== ENCOUNTER 2022-02-07 14:56 | Emergency (ER) | payer MEDICAID ==
[2022-02-07] MEDS ORDERED: Cyclobenzaprine 10 MG Tab PO ONE (14:57)
[2022-02-07 15:18] VITALS: BP 123/72; PULSE 73
[2022-02-07] MEDS ORDERED: Ketorolac 30 MG/ML SDV IM ONE (15:23)
[2022-02-07] MEDS ORDERED: Orphenadrine 60 MG/2 ML Inj IM ONE (15:23)
[2022-02-07] MEDS ORDERED: Cyclobenzaprine 10 MG Tab ONE (16:08)
== END 2022-02-07 16:13 | disposition home or self-care (01) ==
LOC: DL.ED 14:56
DX: G44.209 Tension-type headache, unspecified, not intractable (principal); K21.9 Gastro-esophageal reflux disease without esophagitis; E66.9 Obesity, unspecified; Z68.41 Body mass index [BMI] 40.0-44.9, adult; Z91.011 Allergy to milk products; Z79.899 Other long term (current) drug therapy
CPT/HCPCS: 96372; 99283; A9270; J1885; J2360

== ENCOUNTER 2022-05-17 19:02 | Emergency (ER) | payer MEDICAID | END 2022-05-17 19:09 | disposition left against medical advice (07) | LOC: DL.ED 19:02 | DX: Z53.21 Procedure and treatment not carried out due to patient leaving prior to being seen by health care provider (principal) ==

== ENCOUNTER 2022-06-12 17:36 | Emergency (ER) | payer MEDICAID ==
[2022-06-12 17:58] VITALS: BP 143/86; PULSE 83
[2022-06-12] MEDS: Sodium Chloride 0.9% 10 ML Syringe FLUSH PRN (18:56)
[2022-06-12 19:07] LABS: ANION GAP 10.6 mEq/L (7-13); CHLORIDE,CL 102 mmol/L (98-107); SODIUM,NA 138 mmol/L (136-145)
[2022-06-12 19:09] LABS: ESTIMATED GFR 110 mL/min (>=60)
[2022-06-12] MEDS: Acetaminophen/HYDROcodone 325-10 MG Tab PO ONE (19:25)
[2022-06-12] MEDS: Iopamidol 612 MG/ML 100 ML Bottle IVPUSH ONE (19:25)
== END 2022-06-12 19:28 | disposition home or self-care (01) ==
LOC: DL.ED 17:36
DX: K80.20 Calculus of gallbladder without cholecystitis without obstruction (principal); K21.9 Gastro-esophageal reflux disease without esophagitis; E66.9 Obesity, unspecified; Z68.41 Body mass index [BMI] 40.0-44.9, adult; Z79.899 Other long term (current) drug therapy; Z91.011 Allergy to milk products
CPT/HCPCS: 36415; 71046; 76705; 80053; 81001; 83690; 84484; 84703; 85025; 93005; 93010; 99284; A9270-GY; J3490

== ENCOUNTER 2022-08-04 18:09 | Emergency (ER) | payer MEDICAID ==
[2022-08-04 19:09] VITALS: BP 123/57; PULSE 104
[2022-08-04] MEDS ORDERED: Sodium Chloride 0.9% 10 ML Syringe FLUSH PRN (19:40)
[2022-08-04] MEDS ORDERED: Morphine 2 MG/ML SYRINGE IVPUSH ONE (19:41)
[2022-08-04] MEDS ORDERED: Ondansetron 4 MG/2 ML SDV IVPUSH ONE (19:41)
[2022-08-04] MEDS ORDERED: Lactated Ringers 1,000 ML IV SCH (19:45)
[2022-08-04 19:47] LABS: BASOPHILS PERCENT AUTO 0.2 % (0.0-1.0); EOSINOPHILS PERCENT AUTO 1.4 % (1.0-3.0); HEMOGLOBIN 12.7 g/dL (12.0-16.0); LYMPHOCYTES PERCENT AUTO 16.4 % (20.5-50.1); MEAN CORPUSCULAR HEMOGLOBIN 27.8 pg (27.0-34.0); MEAN CORPUSCULAR HGB CONC 33.4 g/dL (33.0-35.0); MEAN CORPUSCULAR VOLUME 83.2 fL (80-100); MONOCYTES PERCENT AUTO 8.1 % (2-8); NEUTROPHILS PERCENT AUTO 73.9 % (42.2-75.2); PLATELET COUNT,PLT 307 10^3/uL (150-450); RED BLOOD CELL COUNT 4.57 10^6/uL (4.2-5.4)
[2022-08-04 20:02] LABS: A/G RATIO 0.8; ALANINE AMINOTRANSFERASE,ALT 119 U/L (14-59); ALBUMIN 3.5 g/dL (3.4-5.0); ALKALINE PHOSPHATASE 96 U/L (46-116); ANION GAP 14.9 mEq/L (7-13); ASPARTATE AMNIOTRANSFERASE,AST 51 U/L (15-37); BILIRUBIN TOTAL 0.3 mg/dL (0.2-1.0); BLOOD UREA NITROGEN,BUN 15 mg/dL (7-18); BUN/CREATININE RATIO 16.7 (No establ ref range); CALCIUM 8.7 mg/dL (8.5-10.1); CARBON DIOXIDE,CO2 21 mmol/L (21-32); CHLORIDE,CL 106 mmol/L (98-107); GLUCOSE RANDOM 123 mg/dL (70-99); MAGNESIUM 2.2 mg/dL (1.8-2.4); POTASSIUM,K 3.9 mmol/L (3.5-5.1); PROTEIN TOTAL,TP 7.8 g/dL (6.4-8.2); SODIUM,NA 138 mmol/L (136-145)
[2022-08-04 20:13] LABS: ESTIMATED GFR 81 mL/min (>=60)
[2022-08-04 20:21] LABS: LIPASE 63 U/L (73-393)
== END 2022-08-04 21:56 | disposition home or self-care (01) ==
LOC: DL.ED 18:09
DX: K81.0 Acute cholecystitis (principal); K81.1 Chronic cholecystitis; F17.210 Nicotine dependence, cigarettes, uncomplicated; K21.9 Gastro-esophageal reflux disease without esophagitis; E66.9 Obesity, unspecified; Z79.899 Other long term (current) drug therapy; Z91.011 Allergy to milk products
CPT/HCPCS: 36415; 80053; 83690; 83735; 85025; 96361; 96374; 96375; 99283; 99284; J2270; J2405; J7120; J3490

== ENCOUNTER 2023-03-23 17:21 | Emergency (ER) | payer MEDICAID ==
[2023-03-23] MEDS ORDERED: Sodium Chloride 0.9% 10 ML Syringe FLUSH PRN (17:54)
[2023-03-23] MEDS ORDERED: Thiamine 100 MG in Sodium Chloride 0.9% 100 ML IV ONE (17:55)
[2023-03-23] MEDS ORDERED: Sodium Chloride 0.9% 1,000 ML IV ONE ×2 (17:55→18:55)
[2023-03-23] MEDS ORDERED: Lactulose Soln 10 GM/15 ML 30 ML UD Cup PO ONE (17:56)
[2023-03-23 18:20] LABS: BASOPHILS PERCENT AUTO 0.3 % (0.0-1.0); EOSINOPHILS PERCENT AUTO 0.3 % (1.0-3.0); HEMATOCRIT 44.3 % (37.0-47.0); HEMOGLOBIN 14.9 g/dL (12.0-16.0); LYMPHOCYTES PERCENT AUTO 31.4 % (20.5-50.1); MEAN CORPUSCULAR HEMOGLOBIN 28.4 pg (27.0-34.0); MEAN CORPUSCULAR HGB CONC 33.6 g/dL (33.0-35.0); MEAN CORPUSCULAR VOLUME 84.5 fL (80-100); MONOCYTES PERCENT AUTO 4.8 % (2-8); NEUTROPHILS PERCENT AUTO 63.2 % (42.2-75.2); PLATELET COUNT,PLT 302 10^3/uL (150-450); RED BLOOD CELL COUNT 5.24 10^6/uL (4.2-5.4); WHITE BLOOD CELL COUNT,WBC 10.8 10^3/uL (5.0-10.0)
[2023-03-23 18:43] LABS: LACTIC ACID 3.1 mmol/L (0.4-2.0)
[2023-03-23 18:51] LABS: PROTHROMBIN TIME 9.9 SEC (9.0-12.0); PTT,PARTIAL THROMBOPLSTIN TIME 25.6 SEC (22.0-34.0)
[2023-03-23 19:17] LABS: A/G RATIO 0.7; ALANINE AMINOTRANSFERASE,ALT 280 U/L (14-59); ALBUMIN 3.9 g/dL (3.4-5.0); ALKALINE PHOSPHATASE 122 U/L (46-116); ANION GAP 17.6 mEq/L (7-13); ASPARTATE AMNIOTRANSFERASE,AST 165 U/L (15-37); BILIRUBIN TOTAL 0.2 mg/dL (0.2-1.0); BLOOD UREA NITROGEN,BUN 9 mg/dL (7-18); CALCIUM 8.6 mg/dL (8.5-10.1); CARBON DIOXIDE,CO2 25 mmol/L (21-32); CHLORIDE,CL 103 mmol/L (98-107); ESTIMATED GFR 80 mL/min (>=60); ETHANOL BLOOD MEDICAL 221 mg/dL (0); GLUCOSE RANDOM 99 mg/dL (70-99); POTASSIUM,K 3.6 mmol/L (3.5-5.1); PROTEIN TOTAL,TP 9.3 g/dL (6.4-8.2); SODIUM,NA 142 mmol/L (136-145)
[2023-03-23 19:36] LABS: APPEARANCE,URINE CLOUDY (CLEAR); BILIRUBIN,URINE SMALL (NEGATIVE); COLOR,URINE YELLOW (YELLOW); GLUCOSE,URINE NEGATIVE (NEGATIVE); KETONES,URINE TRACE (NEGATIVE); LEUKOCYTE ESTERASE,URINE NEGATIVE (NEGATIVE); NITRITE,URINE NEGATIVE (NEGATIVE); OCCULT BLOOD,URINE MODERATE (NEGATIVE); PROTEIN,URINE 100 (NEGATIVE); UROBILINOGEN,URINE 0.2 mg/dL (0.2-1.0)
[2023-03-23 19:38] VITALS: BP 137/66; PULSE 114
[2023-03-23 19:39] LABS: AMPHETAMINES,URINE NEGATIVE (NEGATIVE); BARBITURATES,URINE NEGATIVE (NEGATIVE); BENZODIAZEPINE,URINE NEGATIVE (NEGATIVE); MDMA (ECSTASY), URINE NEGATIVE (NEGATIVE); METHADONE,URINE NEGATIVE (NEGATIVE); METHAMPHETAMINES,URINE POSITIVE (NEGATIVE); OPIATES,URINE NEGATIVE (NEGATIVE); OXYCODONE,URINE NEGATIVE (NEGATIVE); PHENCYCLIDINE,URINE NEGATIVE (NEGATIVE); TCA,URINE NEGATIVE (NEGATIVE)
[2023-03-23 19:47] LABS: BACTERIA,URINE MANY /HPF (0-FEW/HPF); EPITHELIAL CELLS,URINE FEW /HPF (NOT SEEN); HYALINE CASTS,URINE FEW; MUCUS,URINE MANY /LPF (NOT SEEN); WBC,URINE 0-5 /HPF (0-5/HPF)
[2023-03-26 13:46] LABS: C.TRACHOMATIS BY TMA Negative (Negative); M GENITALIUM Negative (Negative); M GENITALIUM SOURCE Urine; N.GONORRHOEAE BY TMA Negative (Negative); SOURCE Urine
== END 2023-03-23 20:41 | disposition home or self-care (01) ==
LOC: DL.ED 17:21
DX: F15.10 Other stimulant abuse, uncomplicated (principal); F10.129 Alcohol abuse with intoxication, unspecified; E66.9 Obesity, unspecified; K21.9 Gastro-esophageal reflux disease without esophagitis; Z91.011 Allergy to milk products; Z79.899 Other long term (current) drug therapy; Z68.42 Body mass index [BMI] 45.0-49.9, adult
CPT/HCPCS: 36415; 80053; 80305-QW; 80307; 81001; 81025; 82140; 82607; 82947; 83605; 84145; 85025; 85610; 85730; 86592; 87491; 87563; 87591; 96361; 96365; 99283-25; 99284; A9270-GY; J3411; J3490; J7030

== ENCOUNTER 2023-06-05 17:54 | Emergency (ER) | payer MEDICAID ==
[2023-06-05] MEDS: OLANZapine 10 MG Vial IM ONE (17:55)
[2023-06-05 17:58] LABS: BASOPHILS PERCENT AUTO 0.3 % (0.0-1.0); EOSINOPHILS PERCENT AUTO 0.2 % (1.0-3.0); HEMATOCRIT 42.6 % (37.0-47.0); HEMOGLOBIN 14.2 g/dL (12.0-16.0); LYMPHOCYTES PERCENT AUTO 29.7 % (20.5-50.1); MEAN CORPUSCULAR HEMOGLOBIN 28.8 pg (27.0-34.0); MEAN CORPUSCULAR HGB CONC 33.3 g/dL (33.0-35.0); MEAN CORPUSCULAR VOLUME 86.4 fL (80-100); MONOCYTES PERCENT AUTO 6.2 % (2-8); NEUTROPHILS PERCENT AUTO 63.6 % (42.2-75.2); PLATELET COUNT,PLT 334 10^3/uL (150-450); RED BLOOD CELL COUNT 4.93 10^6/uL (4.2-5.4); WHITE BLOOD CELL COUNT,WBC 11.2 10^3/uL (5.0-10.0)
[2023-06-05] MEDS: OLANZapine 10 MG Vial ONE (18:13)
[2023-06-05 18:17] LABS: A/G RATIO 0.8; ALBUMIN 3.5 g/dL (3.4-5.0); ANION GAP 15.6 mEq/L (7-13); BILIRUBIN TOTAL 0.2 mg/dL (0.2-1.0); BUN/CREATININE RATIO 7.7 (No establ ref range); CALCIUM 8.2 mg/dL (8.5-10.1); CREATININE 0.78 mg/dL (0.55-1.02); EST CRCL DRUG DOSING (CG) 78.65 mL/min; POTASSIUM,K 3.6 mmol/L (3.5-5.1)
[2023-06-05] MEDS: Midazolam 1 MG/ML 2 ML SDV IM ONE (18:58)
[2023-06-05] MEDS: Midazolam 1 MG/ML 2 ML SDV ONE (18:58)
[2023-06-05 21:49] VITALS: BP 119/71; PULSE 102
== END 2023-06-06 00:05 | disposition home or self-care (01) ==
LOC: DL.ED 17:54
DX: S00.11XA Contusion of right eyelid and periocular area, initial encounter (principal); F10.921 Alcohol use, unspecified with intoxication delirium; K21.9 Gastro-esophageal reflux disease without esophagitis; Z91.011 Allergy to milk products; Y04.2XXA Assault by strike against or bumped into by another person, initial encounter
CPT/HCPCS: 36415; 70450; 70486; 72125; 80053; 80307; 85025; 96372; 99283; 99285; J2405

== ENCOUNTER 2023-09-17 00:21 | Emergency (ER) | payer MEDICAID ==
[2023-09-17] MEDS: Sodium Chloride 0.9% 10 ML Syringe FLUSH PRN (00:54)
[2023-09-17 00:58] LABS: BASOPHILS PERCENT AUTO 0.2 % (0.0-1.0); EOSINOPHILS PERCENT AUTO 2.3 % (1.0-3.0); HEMATOCRIT 38.7 % (37.0-47.0); HEMOGLOBIN 12.8 g/dL (12.0-16.0); LYMPHOCYTES PERCENT AUTO 28.1 % (20.5-50.1); MEAN CORPUSCULAR HGB CONC 33.1 g/dL (33.0-35.0); MEAN CORPUSCULAR VOLUME 87.8 fL (80-100); MONOCYTES PERCENT AUTO 6.4 % (2-8); PLATELET COUNT,PLT 308 10^3/uL (150-450); RED BLOOD CELL COUNT 4.41 10^6/uL (4.2-5.4); WHITE BLOOD CELL COUNT,WBC 8.4 10^3/uL (5.0-10.0)
[2023-09-17] MEDS: Ketorolac 30 MG/ML SDV IVPUSH ONE (01:15)
[2023-09-17] MEDS: Orphenadrine 60 MG/2 ML Inj IM ONE (01:18)
[2023-09-17 01:20] LABS: A/G RATIO 0.8; ALANINE AMINOTRANSFERASE,ALT 166 U/L (14-59); ALBUMIN 3.4 g/dL (3.4-5.0); ALKALINE PHOSPHATASE 121 U/L (46-116); ANION GAP 15.5 mEq/L (7-13); ASPARTATE AMNIOTRANSFERASE,AST 85 U/L (15-37); BILIRUBIN TOTAL 0.2 mg/dL (0.2-1.0); BLOOD UREA NITROGEN,BUN 8 mg/dL (7-18); BUN/CREATININE RATIO 11.3 (No establ ref range); CALCIUM 8.8 mg/dL (8.5-10.1); CARBON DIOXIDE,CO2 25 mmol/L (21-32); CHLORIDE,CL 106 mmol/L (98-107); CREATININE 0.71 mg/dL (0.55-1.02); ETHANOL BLOOD MEDICAL 200 mg/dL (0); GLUCOSE RANDOM 110 mg/dL (70-99); MAGNESIUM 2.2 mg/dL (1.8-2.4); POTASSIUM,K 3.5 mmol/L (3.5-5.1); PROTEIN TOTAL,TP 7.8 g/dL (6.4-8.2); SODIUM,NA 143 mmol/L (136-145)
[2023-09-17 01:21] LABS: ESTIMATED GFR 107 mL/min (>=60)
[2023-09-17 03:02] VITALS: BP 113/67; PULSE 62
== END 2023-09-17 03:00 | disposition home or self-care (01) ==
LOC: DL.ED 00:21
DX: S76.912A Strain of unspecified muscles, fascia and tendons at thigh level, left thigh, initial encounter (principal); K21.9 Gastro-esophageal reflux disease without esophagitis; E66.9 Obesity, unspecified; Z86.16 Personal history of COVID-19; Z87.891 Personal history of nicotine dependence; Z79.899 Other long term (current) drug therapy; Z91.011 Allergy to milk products; X58.XXXA Exposure to other specified factors, initial encounter
CPT/HCPCS: 36415; 80053; 80307; 83735; 85025; 96372; 96374; 99283; 99283-25; J1885; J2360; J3490

== ENCOUNTER 2023-11-15 16:04 | Emergency (ER) | payer MEDICAID ==
[2023-11-15] MEDS ORDERED: Sodium Chloride 0.9% 10 ML Syringe FLUSH PRN (16:05)
[2023-11-15 16:13] VITALS: BP 97/54; PULSE 98
[2023-11-15 16:30] LABS: BASOPHILS PERCENT AUTO 0.2 % (0.0-1.0); EOSINOPHILS PERCENT AUTO 1.2 % (1.0-3.0); HEMATOCRIT 38.4 % (37.0-47.0); HEMOGLOBIN 12.3 g/dL (12.0-16.0); LYMPHOCYTES PERCENT AUTO 17.5 % (20.5-50.1); MEAN CORPUSCULAR HEMOGLOBIN 28.1 pg (27.0-34.0); MEAN CORPUSCULAR VOLUME 87.9 fL (80-100); MONOCYTES PERCENT AUTO 7.8 % (2-8); NEUTROPHILS PERCENT AUTO 73.3 % (42.2-75.2); PLATELET COUNT,PLT 207 10^3/uL (150-450); RED BLOOD CELL COUNT 4.37 10^6/uL (4.2-5.4); WHITE BLOOD CELL COUNT,WBC 9.6 10^3/uL (5.0-10.0)
[2023-11-15 16:52] LABS: ALBUMIN 3.1 g/dL (3.4-5.0); ANION GAP 13.6 mEq/L (7-13); BILIRUBIN TOTAL 0.2 mg/dL (0.2-1.0); BUN/CREATININE RATIO 8.7 (No establ ref range); CALCIUM 8.3 mg/dL (8.5-10.1); CREATININE 0.69 mg/dL (0.55-1.02); EST CRCL DRUG DOSING (CG) 111.34 mL/min; MAGNESIUM 2.2 mg/dL (1.8-2.4); POTASSIUM,K 3.6 mmol/L (3.5-5.1); PROTEIN TOTAL,TP 7.5 g/dL (6.4-8.2)
[2023-11-15 17:01] LABS: A/G RATIO 0.7
== END 2023-11-15 17:38 | disposition home or self-care (01) ==
LOC: DL.ED 16:04
DX: F10.929 Alcohol use, unspecified with intoxication, unspecified (principal); E66.9 Obesity, unspecified; Z86.16 Personal history of COVID-19; Z91.011 Allergy to milk products; Z68.42 Body mass index [BMI] 45.0-49.9, adult
CPT/HCPCS: 36415; 80053; 80307; 82140; 82947; 83735; 85025; 99284; 99285

== ENCOUNTER 2024-01-11 06:46 | Emergency (ER) | payer MEDICAID ==
[2024-01-11 07:15] VITALS: BP 138/78; PULSE 78
[2024-01-11 08:30] LABS: BASOPHILS PERCENT AUTO 0.3 % (0.0-1.0); EOSINOPHILS PERCENT AUTO 3.8 % (1.0-3.0); HEMATOCRIT 38.8 % (37.0-47.0); HEMOGLOBIN 12.6 g/dL (12.0-16.0); MEAN CORPUSCULAR HEMOGLOBIN 27.9 pg (27.0-34.0); MEAN CORPUSCULAR HGB CONC 32.5 g/dL (33.0-35.0); MEAN CORPUSCULAR VOLUME 85.8 fL (80-100); MONOCYTES PERCENT AUTO 7.7 % (2-8); NEUTROPHILS PERCENT AUTO 65.2 % (42.2-75.2); PLATELET COUNT,PLT 286 10^3/uL (150-450); RED BLOOD CELL COUNT 4.52 10^6/uL (4.2-5.4); WHITE BLOOD CELL COUNT,WBC 6.7 10^3/uL (5.0-10.0)
[2024-01-11 08:49] LABS: CALCIUM 9.2 mg/dL (8.5-10.1); CREATININE 0.64 mg/dL (0.55-1.02); EST CRCL DRUG DOSING (CG) 107.95 mL/min; URIC ACID 3.1 mg/dL (2.6-6.0)
[2024-01-11] MEDS: Ketorolac 30 MG/ML SDV IM ONE (09:00)
== END 2024-01-11 09:11 | disposition home or self-care (01) ==
LOC: DL.ED 06:46
DX: M77.12 Lateral epicondylitis, left elbow (principal); K21.9 Gastro-esophageal reflux disease without esophagitis; E66.9 Obesity, unspecified; Z68.42 Body mass index [BMI] 45.0-49.9, adult; Z79.899 Other long term (current) drug therapy; Z91.011 Allergy to milk products
CPT/HCPCS: 36415; 73070; 80048; 84550; 84703; 85025; 96372; 99283; J1885